=== PATIENT | female | born 1970 | race Caucasian/White ===

== ENCOUNTER 2019-10-26 18:25 | Emergency (ER) | payer MEDICARE, OTHER, SELFPAY ==
--- NOTE | 2019-10-26 18:28 | ED.GENADULT ---
HPI - General Adult General Chief complaint: Upper Respiratory Infection Stated complaint: Asthma issues Time Seen by Provider: 10/26/19 19:05 Source: patient Mode of arrival: ambulatory Limitations: no limitations History of Present Illness HPI narrative: 49-year-old female patient presents to the [facility] with complaints of shortness of breath and coughing. Patient states that started yesterday. Patient states she does have a history of sports induced asthma and has been using her inhaler at home but states she thinks it is almost out. Patient states she is also had some congestion symptoms but denies any sore throat, ear pain or fevers. Patient denies getting a flu shot yet this year. Related Data Home Medications Medication Instructions Recorded Confirmed albuterol sulfate 2 puff INHALATION QID PRN 10/26/19 10/26/19 Allergies Allergy/AdvReac Type Severity Reaction Status Date / Time codeine Allergy Intermediate hives Verified 10/26/19 18:55 Penicillins Allergy Intermediate hives Verified 10/26/19 18:55 lorazepam Allergy Mild chest Verified 10/26/19 18:55 burning latex AdvReac Mild Rash Verified 10/26/19 18:55 Review of Systems Review of Systems: Narrative: CONSTITUTIONAL: Denies fever, chills, or sweats. EYES: Denies visual changes, redness, or discharge. ENT: Positive rhinorrhea, congestion, denies sore throat, or otalgia. CARDIOVASCULAR: Denies chest pain, palpitations, or edema. RESPIRATORY: Positive cough with dyspnea. GASTROINTESTINAL: Denies abdominal pain, nausea, vomiting, or diarrhea. GENITOURINARY: Denies dysuria or hematuria. SKIN: Denies rash or itching. MUSCULOSKELETAL: Denies back pain, joint pain, or myalgia. NEUROLOGIC: Denies headache, numbness, or weakness. PSYCHIATRIC: Denies anxiety or depression. [facility] Past Medical History Medical History ADHD Anxiety Asthma Cone-kylah degeneration Depression Hypertension Surgical History Surgical History H/O: hysterectomy Comments At the time of my signature I agree with nursing past medical history, surgical, social, and family history. There is no relevant family history pertinent to the presenting complaint. Exam Narrative: Exam Narrative: GENERAL: Well-appearing, well-nourished, and in no acute distress. HEAD: Normocephalic, atraumatic. No tenderness noted to frontal maxillary sinuses on palpation. EYES: PERRLA and EOMI. ENT: Nares with erythema and edema noted bilaterally, no rhinorrhea or epistaxis. Mucous membranes moist. Posterior pharynx with no erythema, tonsillar margin, exudates or lesions present. Bilateral TMs are clear with no erythema or foreign bodies in the canal. NECK: Supple. No lymphadenopathy CHEST: No wheezing noted on auscultation. Patient does sound slightly diminished to the lower lobes.. No respiratory distress. Patient does have some labored breathing noted and is talking in broken sentences but no tripoding noted. HEART: Regular rate and rhythm. No murmur heard. Normal peripheral pulses. ABDOMEN: Soft, nontender, nondistended, normal active bowel sounds. EXTREMITIES: Normal range of motion. No edema. SKIN: Warm, dry, no rash. NEURO: No focal deficits. Alert and oriented x3. Course Reevaluation(s) Reevaluation #1: Reevaluated patient and her lungs are nice and clear after receiving her DuoNeb. Patient states that she is feeling much better and is less short of breath. Discussed with patient we will discharge her home with an albuterol inhaler, oral steroid, daily antihistamine, nasal steroid to help with her symptoms and if she has worsening symptoms such as chest pain or shortness of breath she feels like this medication is not helping her she needs to go the ER for further evaluation and treatment. Patient verbalized understanding denies any other questions or concerns at this time. Date: 10/26/19 [place]
[2019-10-26 18:35] VITALS: BP 178/98; PULSE 100; RESP 28; TEMP 36.3; O2SAT 99
[2019-10-26] MEDS: ALBUTEROL SULFATE NEB 2.5 MG/3 ML INH INHALATION (19:16)
[2019-10-26] MEDS: IPRATROPIUM BR 0.02% INH SOLN 0.5 MG/2.5 ML VIAL INHALATION (19:16)
== END 2019-10-26 19:35 | disposition home or self-care (01) ==
PROVIDERS: Emergency Provider Nurse Practitioner Family
DX: J06.9 Acute upper respiratory infection, unspecified (principal); J45.31 Mild persistent asthma with (acute) exacerbation; F41.9 Anxiety disorder, unspecified; I10 Essential (primary) hypertension; H35.53 Other dystrophies primarily involving the sensory retina; H54.8 Legal blindness, as defined in USA
CPT/HCPCS: 94640; 99213; G0463

== ENCOUNTER 2021-01-22 15:47 | Emergency (ER) | payer MEDICARE, OTHER, SELFPAY ==
--- NOTE | ~2021-01-22 | XR_ITS ---
EXAMINATION: XR knee RT min 4V EXAM DATE: 01/22/2021 16:26 INDICATION: Initial encounter following injury, with pain of the right knee. TECHNIQUE: Right knee frontal, crosstable lateral, orthogonal oblique projections for interpretation . There is no prior study for comparison. FINDINGS: There is mild right knee tricompartmental primary osteoarthritis. No joint effusion. There are no acute fractures or dislocations identified. There is no subcutaneous gas. The soft tissue i s unremarkable. There are no radiopaque foreign bodies. IMPRESSION: No acute osseous findings. Reviewed, dictated and finalized at location A. IMPRESSION: No acute osseous findings.
[2021-01-22 15:56] VITALS: BP 146/89; PULSE 82; RESP 20; TEMP 36.4; O2SAT 98
--- NOTE | 2021-01-22 16:06 | ED.LOWEXIN ---
HPI - Extremity Injury (Lower) General Chief Complaint: Extremity Injury, Lower Stated Complaint: right knee injury Time Seen by Provider: 01/22/21 16:06 Source: patient, family and RN notes reviewed History of Present Illness HPI Narrative: Patient is a 50-year-old female who presents to the urgent care with complaints of right knee pain. Patient states that she was going to sit down on a lounge chair, missed the chair and landed directly on the right knee. Patient is legally blind and just did not see the chair clearly. Patient denies any use of ice or [id number] medication prior to arrival. Patient states the injury just occurred. Denies of hitting her head or any loss of consciousness. Patient's is accompanying in the facility. No other acute complaints. No acute distress noted. Patient aware of the plan of care. Some parts of this dictation were generated by voice recognition software and may contain typographical and/or grammatical inaccuracies. Related Data Home Medications Medication Instructions Recorded Confirmed albuterol sulfate 2 puff INHALATION QID PRN 01/22/21 01/22/21 dextroamphetamine-amphetamine 30 mg PO DAILY 01/22/21 01/22/21 dextroamphetamine-amphetamine PO 01/22/21 lisinopril 01/22/21 metoprolol succinate 25 mg PO DAILY 01/22/21 01/22/21 sertraline 50 mg PO DAILY 01/22/21 01/22/21 sertraline 100 mg PO DAILY 01/22/21 01/22/21 Allergies Allergy/AdvReac Type Severity Reaction Status Date / Time codeine Allergy Intermediate hives Verified 01/22/21 15:58 Penicillins Allergy Intermediate hives Verified 01/22/21 15:58 lorazepam Allergy Mild chest Verified 01/22/21 15:58 burning latex AdvReac Mild Rash Verified 01/22/21 15:58 Review of Systems Review of Systems: Narrative: CONSTITUTIONAL: Denies fever, chills, or sweats. EYES: Denies visual changes, redness, or discharge. ENT: Denies rhinorrhea, congestion, sore throat, or otalgia. CARDIOVASCULAR: Denies chest pain, palpitations, or edema. RESPIRATORY: Denies cough or dyspnea. GASTROINTESTINAL: Denies abdominal pain, nausea, vomiting, or diarrhea. GENITOURINARY: Denies dysuria or hematuria. SKIN: Denies rash or itching. MUSCULOSKELETAL: Reports of right knee pain due to injury NEUROLOGIC: Denies headache, numbness, or weakness. All other systems reviewed are negative, except as documented in HPI. [facility] Past Medical History Medical History (Updated 01/22/21 @ 16:38 by GREGORY Mendez) ADHD Anxiety Asthma Cone-kylah degeneration Depression Hypertension Surgical History Surgical History H/O: hysterectomy Comments At the time of my signature, I reviewed and agree with the nursing past medical, surgical, social, and family history. There is no relevant family history pertinent to the patient complaint. Exam Narrative: Exam Narrative: GENERAL: This is a well-nourished, well-developed patient, in no apparent distress. HEAD: normocephalic, atraumatic. EYES: PERRL. Sclera clear/white. Vision is grossly intact. EARS: External ears normal NOSE: External nose normal with no obvious nasal discharge, nares without redness, no rhinorrhea. THROAT: Mucous membranes moist NECK: Neck supple SKIN: warm, intact with no suspicious lesions or rash, good texture and turgor. NEURO: awake, alert, and oriented to person, place and time. There were no obvious focal neurologic abnormalities. EXTREMITIES: Very mild erythema noted over the anterior aspect of the right knee without any obvious ecchymosis or edema. Moderate tenderness over the anterior knee. Unable to complete full range of motion due to pain. Exacerbated pain with flexion. Positive strong right pedal pulse with capillary refill less than 2 seconds. Course Vital Signs Vital signs: Vital Signs Temperature 97.6 F 01/22/21 15:56 Pulse Rate 82 01/22/21 15:56 Respiratory Rate 20 01/22/21 15:56 Blood Pressure
== END 2021-01-22 16:40 | disposition home or self-care (01) ==
PROVIDERS: Emergency Provider Nurse Practitioner Family
DX: S80.01XA Contusion of right knee, initial encounter (principal); W19.XXXA Unspecified fall, initial encounter; F90.9 Attention-deficit hyperactivity disorder, unspecified type; F41.9 Anxiety disorder, unspecified; F32.9 Major depressive disorder, single episode, unspecified; J45.909 Unspecified asthma, uncomplicated; I10 Essential (primary) hypertension
CPT/HCPCS: 73564; 99213; G0463

== ENCOUNTER 2021-02-23 15:13 | Emergency (ER) | payer MEDICARE, OTHER, SELFPAY ==
[2021-02-23 15:25] VITALS: BP 143/85; PULSE 85; RESP 16; TEMP 36.6; O2SAT 98
--- NOTE | 2021-02-23 16:08 | ED.SKABFB ---
HPI - Skin/Abscess/Foreign Bdy General Chief complaint: Skin/Abscess/Foreign Body Stated complaint: Sores in Mouth Time Seen by Provider: 02/23/21 15:50 Source: patient and RN notes reviewed Mode of arrival: ambulatory Limitations: no limitations History of Present Illness HPI narrative: Patient presents today complaining of a sore to her lower lip. States it has been present for 2 months and started on is a small white bump. It has worsened to the point that it is but has not gotten worse in some time. She describes it as sore . She believes that it may be due to her siphoning out pool water from her pool with her mouth on the hose just prior to onset. She did take a prescription for Valtrex and also tried some cold sore medication without relief of symptoms. Patient has never smoked, vape at, or chewed tobacco. She does have history of skin cancer to her right forearm that was removed. She does not currently have a pond tender. Patient is visually impaired and relies on her to give her updates about how the lesion looks. He does seem very attentive. MD complaint: lesion Related Data Home Medications Medication Instructions Recorded Confirmed dextroamphetamine-amphetamine 10 mg PO DAILY 01/22/21 02/23/21 dextroamphetamine-amphetamine 30 mg PO DAILY 01/22/21 02/23/21 lisinopril 10 mg PO DAILY 01/22/21 02/23/21 metoprolol succinate 25 mg PO DAILY 01/22/21 02/23/21 sertraline 50 mg PO DAILY 01/22/21 02/23/21 sertraline 100 mg PO DAILY 01/22/21 02/23/21 valacyclovir 1,000 mg PO DAILY 02/23/21 02/23/21 Allergies Allergy/AdvReac Type Severity Reaction Status Date / Time codeine Allergy Intermediate hives Verified 01/22/21 15:58 Penicillins Allergy Intermediate hives Verified 01/22/21 15:58 lorazepam Allergy Mild chest Verified 01/22/21 15:58 burning latex AdvReac Mild Rash Verified 01/22/21 15:58 Review of Systems Review of Systems: Narrative: CONSTITUTIONAL: Denies body aches, fever, chills, or sweats. EYES: Denies visual changes, redness, or discharge. ENT: Denies rhinorrhea, congestion, sore throat, or otalgia. CARDIOVASCULAR: Denies chest pain, palpitations, or edema. RESPIRATORY: Denies cough or dyspnea. GASTROINTESTINAL: Denies abdominal pain, nausea, vomiting, or diarrhea. GENITOURINARY: Denies dysuria or hematuria. SKIN: Denies rash, itching, or wounds.+ Lesion to lower lip MUSCULOSKELETAL: Denies back pain, joint pain, or myalgia. NEUROLOGIC: Denies headache, numbness, tingling, or weakness. PSYCH: Denies depression or anxiety. [facility] Past Medical History Medical History (Updated 02/23/21 @ 16:11 by Benita Washington, GREGORY, ) ADHD Anxiety Asthma Cone-kylah degeneration Depression Hypertension Surgical History Surgical History H/O: hysterectomy Social History Social History Gender identity (if verbalized by the patient): Female Comments At time of signature, I have reviewed and agree with nursing past medical, surgical, social and family history unless otherwise noted. Please see nursing chart for further information. There is no relevant family history pertinent to the presenting complaint Exam Narrative: Exam Narrative: GENERAL: Well-appearing, well-nourished, and in no acute distress. HEAD: Normocephalic, atraumatic. EYES: EOMI. No redness or drainage. Conjunctivae normal. ENT: Mucous membranes pink and moist. Lower lip: ~6mm white area to midline lower lip with well delineated outer edge and firm tissue. Sore to touch. Mild erythema to the medial edge where patient tore off a loose piece of overlying skin. No edema. Remainder of the oral mucosa appears normal. NECK: Normal AROM. Supple. No lymphadenopathy. CHEST: No respiratory distress. EXTREMITIES: Normal range of motion. No edema. SKIN: Warm, dry, no rash. Capillary refill normal. Normal skin turgor. NEURO
== END 2021-02-23 16:18 | disposition home or self-care (01) ==
PROVIDERS: Emergency Provider Nurse Practitioner; PCP Internal Medicine
DX: K13.0 Diseases of lips (principal); I10 Essential (primary) hypertension; J45.909 Unspecified asthma, uncomplicated; F90.9 Attention-deficit hyperactivity disorder, unspecified type; F41.9 Anxiety disorder, unspecified; F32.9 Major depressive disorder, single episode, unspecified
CPT/HCPCS: 99211; G0463

== ENCOUNTER 2021-05-08 09:54 | Emergency (ER) | payer MEDICARE, OTHER, SELFPAY ==
[2021-05-08 10:03] VITALS: BP 147/90; PULSE 88; RESP 20; TEMP 37.6; O2SAT 99
--- NOTE | 2021-05-08 10:41 | ED.SOB ---
HPI - SOB/Dyspnea General Chief Complaint: Shortness of Breath/Dyspnea Stated Complaint: Shortness of breath Time Seen by Provider: 05/08/21 10:44 Source: patient, RN notes reviewed and old records reviewed Mode of arrival: ambulatory Limitations: no limitations History of Present Illness HPI Narrative: 51-year-old female who presents to [facility] accompanied by daughter. with complaints of cough with some shortness of breath noted with exertion for the past 2 days Patient states that she initially had some sinus drainage and congestion which seems to be resolving but has history of asthma and she has been coughing with shortness of breath with exertion and wheezing noted.Patient denies any chest pain or edema. She reports that her daughter and had also had some upper respiratory symptoms prior to her becoming ill.Patient reports that she has been taking Tylenol, Mucinex and also some Sudafed for her symptoms. Patient denies any known fevers, chills or sweats, has not had flu or Covid immunizations. Related Data Home Medications Medication Instructions Recorded Confirmed dextroamphetamine-amphetamine 10 mg PO DAILY 01/22/21 05/08/21 dextroamphetamine-amphetamine 30 mg PO DAILY 01/22/21 05/08/21 lisinopril 10 mg PO DAILY 01/22/21 05/08/21 metoprolol succinate 25 mg PO DAILY 01/22/21 05/08/21 sertraline 50 mg PO DAILY 01/22/21 05/08/21 sertraline 100 mg PO DAILY 01/22/21 05/08/21 valacyclovir 1,000 mg PO DAILY 02/23/21 05/08/21 Allergies Allergy/AdvReac Type Severity Reaction Status Date / Time codeine Allergy Intermediate hives Verified 05/08/21 10:02 Penicillins Allergy Intermediate hives Verified 05/08/21 10:02 lorazepam Allergy Mild chest Verified 05/08/21 10:02 burning latex AdvReac Mild Rash Verified 05/08/21 10:02 Review of Systems Review of Systems: CONSTITUTIONAL: Denies fever, chills, or sweats. EYES: Denies visual changes, redness, or discharge.patient is legally blind ENT: positive for rhinorrhea, congestion,no sore throat, or otalgia. CARDIOVASCULAR: Denies chest pain, palpitations, or edema. RESPIRATORY:Positive for cough and dyspnea with exertion and wheezing GASTROINTESTINAL: Denies abdominal pain, nausea, vomiting, or diarrhea. GENITOURINARY: Denies dysuria or hematuria. SKIN: Denies rash or itching. MUSCULOSKELETAL: Denies back pain, joint pain, or myalgia. NEUROLOGIC: Denies headache, numbness, or weakness. PSYCHIATRIC: Positive for anxiety or depression. All systems reviewed & are unremarkable except as noted in HPI and below PMFSH Past Medical History Medical History ADHD Anxiety Asthma Cone-kylah degeneration Depression Hypertension Surgical History Surgical History H/O: hysterectomy History of tonsillectomy and adenoidectomy age 8 Previous section x2 Family History Family History Other No significant family history Social History Social History (Updated 05/10/21 @ 07:52 by Antonella Granados NP) Smoking status: Never smoker Alcohol intake: never Substance use: never Living arrangements: with family Gender identity (if verbalized by the patient): Female Comments At time of signature, agree with nursing past medical, surgical, social and family history. There is no relevant family history pertinent to the presenting complaint Exam Narrative: GENERAL: Well-appearing, well-nourished, and in no acute distress. HEAD: Normocephalic, atraumatic. EYES: PERRLA and EOMI.has bilateral cone dystrophy is legally blind ENT: Nares mild redness with clear rhinorrhea no epistaxis. Mucous membranes moist.TM's normal with good light reflex, throat NECK: Supple.no lymphadenopathy CHEST: Scattered wheezing on auscultation. No acute respiratory distress, no tachypnea, SAO2 99% on room air HEART: Regular ra
[2021-05-08] MEDS: ALBUTEROL SULFATE NEB 2.5 MG/3 ML INH INHALATION (11:08)
[2021-05-08 11:40] VITALS: PULSE 96; RESP 20; O2SAT 98
== END 2021-05-08 11:40 | disposition home or self-care (01) ==
PROVIDERS: Emergency Provider Registered Nurse
DX: J45.21 Mild intermittent asthma with (acute) exacerbation (principal); F90.9 Attention-deficit hyperactivity disorder, unspecified type; I10 Essential (primary) hypertension; F32.9 Major depressive disorder, single episode, unspecified
CPT/HCPCS: 94640; 99213; G0463

== ENCOUNTER 2021-08-29 13:19 | Emergency (ER) | payer MEDICARE, OTHER, SELFPAY ==
[2021-08-29 13:27] VITALS: BP 152/83; PULSE 80; RESP 20; TEMP 37.1; O2SAT 95
--- NOTE | 2021-08-29 13:36 | ED.URI ---
HPI - URI/Sore Throat General Chief Complaint: Upper Respiratory Infection Stated Complaint: sore throat and ear pain Time Seen by Provider: 08/29/21 13:36 Source: patient, family and RN notes reviewed Mode of arrival: ambulatory Limitations: no limitations History of Present Illness HPI Narrative: Kaia is a 51-year-old female patient [facility] her . Patient has a 1 day history of nasal congestion and sore throat. Patient states she has a new grandbaby that she seen this week and so just wanted to make sure she did not have anything contagious. Patient has not been taking her daily allergy medicine. MD elicited complaint: sore throat Related Data Home Medications Medication Instructions Recorded Confirmed dextroamphetamine-amphetamine 10 mg PO DAILY 01/22/21 05/08/21 dextroamphetamine-amphetamine 30 mg PO DAILY 01/22/21 05/08/21 lisinopril 10 mg PO DAILY 01/22/21 05/08/21 metoprolol succinate 25 mg PO DAILY 01/22/21 05/08/21 sertraline 50 mg PO DAILY 01/22/21 05/08/21 sertraline 100 mg PO DAILY 01/22/21 05/08/21 valacyclovir 1,000 mg PO DAILY 02/23/21 05/08/21 Allergies Allergy/AdvReac Type Severity Reaction Status Date / Time codeine Allergy Intermediate hives Verified 08/29/21 13:37 Penicillins Allergy Intermediate hives Verified 08/29/21 13:37 lorazepam Allergy Mild chest Verified 08/29/21 13:37 burning latex AdvReac Mild Rash Verified 08/29/21 13:37 Review of Systems Review of Systems: CONSTITUTIONAL: Denies body aches, fever, chills, or sweats. EYES: Denies visual changes, redness, or discharge. ENT: Denies rhinorrhea,+ congestion, +sore throat, or otalgia. CARDIOVASCULAR: Denies chest pain, palpitations, or edema. RESPIRATORY: Denies cough or dyspnea. GASTROINTESTINAL: Denies abdominal pain, nausea, vomiting, or diarrhea. GENITOURINARY: Denies dysuria or hematuria. SKIN: Denies rash, itching, or wounds. MUSCULOSKELETAL: Denies back pain, joint pain, or myalgia. NEUROLOGIC: Denies headache, numbness, tingling, or weakness. PSYCH: Denies depression or anxiety. All systems reviewed & are unremarkable except as noted in HPI and below PMFSH Past Medical History Medical History ADHD Anxiety Asthma Cone-kylah degeneration Depression Hypertension Surgical History Surgical History H/O: hysterectomy History of tonsillectomy and adenoidectomy age 8 Previous section x2 Family History Family History Other No significant family history Social History Social History Smoking status: Never smoker Alcohol intake: never Substance use: never Gender identity (if verbalized by the patient): Female Comments At time of signature, I have reviewed and agree with nursing past medical, surgical, social and family history unless otherwise noted. Please see nursing chart for further information. There is no relevant family history pertinent to the presenting complaint Exam Narrative: GENERAL: Well-appearing, well-nourished, and in no acute distress. HEAD: Normocephalic, atraumatic. EYES: EOMI. No redness or drainage. Conjunctivae normal. ENT: Mucous membranes pink and moist. Nares clear. No rhinorrhea. TMs dull with minimal amount of fluid in right ear, left TM normal, no erythema noted. Posterior pharynx erythemic with mild edema, without exudate. . Uvula midline. NECK: Normal AROM. Supple. No lymphadenopathy. CHEST: No respiratory distress. Clear to auscultation. MUSCULOSKELETAL: No bony tenderness. EXTREMITIES: Normal range of motion. No edema. SKIN: Warm, dry, no rash. Capillary refill normal. Normal skin turgor. NEURO: No focal deficits. Alert and oriented x3. Gait steady. PSYCH: Normal affect. No signs of depress
== END 2021-08-29 13:50 | disposition home or self-care (01) ==
PROVIDERS: Emergency Provider Nurse Practitioner Family
DX: J02.8 Acute pharyngitis due to other specified organisms (principal); I10 Essential (primary) hypertension
CPT/HCPCS: 87081; 87880; 99213; G0463

== ENCOUNTER 2021-09-17 14:44 | Emergency (ER) | payer MEDICARE, OTHER, SELFPAY ==
[2021-09-17 15:00] VITALS: BP 153/89; PULSE 79; RESP 18; TEMP 36.8; O2SAT 99
--- NOTE | 2021-09-17 15:13 | ED.URI ---
HPI - URI/Sore Throat General Chief Complaint: Upper Respiratory Infection Stated Complaint: sore throat Time Seen by Provider: 09/17/21 15:13 Source: patient, RN notes reviewed and old records reviewed Mode of arrival: ambulatory Limitations: no limitations History of Present Illness HPI Narrative: 51-year-old female presents to the [facility] with complaints of a sore throat. Patient states for the last week she has had sinus congestion, postnasal drip. Had seen her primary on the was prescribed Tessalon Perles for her cough, did not take any. States that she has had intermittent sore throat that is been waxing and waning for the last month. Reports a cough at night. Denies fevers. No chest pain or shortness of breath. No abdominal pain Related Data Home Medications Medication Instructions Recorded Confirmed dextroamphetamine-amphetamine 10 mg PO DAILY 01/22/21 09/17/21 dextroamphetamine-amphetamine 30 mg PO DAILY 01/22/21 09/17/21 lisinopril 10 mg PO DAILY 01/22/21 09/17/21 metoprolol succinate 25 mg PO DAILY 01/22/21 09/17/21 sertraline 100 mg PO DAILY 01/22/21 09/17/21 benzocaine-menthol [Sore Throat 1 ana maria PO DAILY PRN 09/17/21 09/17/21 (benzocaine-menth)] Allergies Allergy/AdvReac Type Severity Reaction Status Date / Time codeine Allergy Intermediate hives Verified 09/17/21 15:17 Penicillins Allergy Intermediate hives Verified 09/17/21 15:17 lorazepam Allergy Mild chest Verified 09/17/21 15:17 burning latex AdvReac Mild Rash Verified 09/17/21 15:17 Review of Systems Constitutional: Constitutional: Reports no additional constitutional complaints, Denies chills and Denies fever(s) Eyes: Eyes: Reports no additional eye complaints ENT: Reports nasal congestion and Reports sore throat Cardiovascular: Cardiovascular: Reports no additional cardiovascular complaints and Denies chest pain Respiratory: Respiratory: Reports as per HPI, Reports cough (At night), Denies dyspnea and Denies wheezing Gastrointestinal: Gastrointestinal: Reports no additional gastrointestinal complaints Musculoskeletal: Musculoskeletal: Reports no additional musculoskeletal complaints Integumentary/Breasts: Skin/Breast: Reports system reviewed and no additional complaints, except as docu Neurologic: Reports system reviewed and no additional complaints, except as documented Psychiatric: Psychiatric: Reports no additional psychiatric complaints Allergic/Immunologic: Allergic/Immunologic: Reports no additional allergic/immunologic complaints PMFSH Past Medical History Medical History ADHD Anxiety Asthma Cone-kylah degeneration Depression Hypertension Surgical History Surgical History H/O: hysterectomy History of tonsillectomy and adenoidectomy age 8 Previous section x2 Family History Family History Other No significant family history Social History Social History Smoking status: Never smoker Alcohol intake: never Substance use: never Gender identity (if verbalized by the patient): Female Comments At the time of my signature, I reviewed and agree with the nursing past medical, surgical, social, and family history. There is no relevant family history pertinent to the patient complaint. Exam Const: General: healthy appearing, no acute distress and alert Nutritional Appearance: well nourished Orientation/consciousness: patient oriented x3 Limitations: no limitations HENMT: Head: normal to inspection Ears: hearing grossly normal bilaterally, external ears normal, TM's normal bilaterally, EAC's normal and no periauricular adenopathy Face and sinus: normal facial exam Mouth: Yes Normal oral and palatal mucosa present Throat: uvula midline and postnasal drainage Eyes: Conjunctivae: conjunctivae nor
== END 2021-09-17 15:30 | disposition home or self-care (01) ==
PROVIDERS: Emergency Provider Nurse Practitioner
DX: R09.82 Postnasal drip (principal); J45.909 Unspecified asthma, uncomplicated; I10 Essential (primary) hypertension; F90.9 Attention-deficit hyperactivity disorder, unspecified type; F41.9 Anxiety disorder, unspecified; F32.A Depression, unspecified
CPT/HCPCS: 87081; 87880; 99213; G0463

== ENCOUNTER 2021-11-16 14:11 | Emergency (ER) | payer MEDICARE, OTHER, SELFPAY ==
[2021-11-16 14:20] VITALS: BP 141/80; PULSE 86; RESP 16; TEMP 36.9; O2SAT 100
--- NOTE | 2021-11-16 14:27 | ED.EAR ---
HPI - Ear Problem General Chief complaint: Ear Stated complaint: lt ear Time Seen by Provider: 11/16/21 14:26 Source: patient, RN notes reviewed and old records reviewed Mode of arrival: ambulatory Limitations: no limitations History of Present Illness HPI Narrative: 51 year old female who presents to [facility] care accompanied by her with complaints of left ear pressure for the past 3 days with history of previous ear infections in the past reported. Patient denies any fevers, chills, or sweats, denies any sinus drainage or congestion or any drainage from her left ear. Patient states that she has tried some ear wax remover with no relief, no drainage from ear. MD Complaint: ear pain Location: left ear Related Data Home Medications Medication Instructions Recorded Confirmed dextroamphetamine-amphetamine 10 mg PO DAILY 01/22/21 09/17/21 dextroamphetamine-amphetamine 30 mg PO DAILY 01/22/21 09/17/21 lisinopril 10 mg PO DAILY 01/22/21 09/17/21 metoprolol succinate 25 mg PO DAILY 01/22/21 09/17/21 sertraline 100 mg PO DAILY 01/22/21 09/17/21 benzocaine-menthol [Sore Throat 1 ana maria PO DAILY PRN 09/17/21 09/17/21 (benzocaine-menth)] Allergies Allergy/AdvReac Type Severity Reaction Status Date / Time codeine Allergy Intermediate hives Verified 09/17/21 15:17 Penicillins Allergy Intermediate hives Verified 09/17/21 15:17 lorazepam Allergy Mild chest Verified 09/17/21 15:17 burning latex AdvReac Mild Rash Verified 09/17/21 15:17 Review of Systems Review of Systems: CONSTITUTIONAL: Denies fever, chills, or sweats. EYES: Denies visual changes, redness, or discharge.patient is legally blind ENT: Denies rhinorrhea, congestion, sore throat, positive for left ear otalgia. CARDIOVASCULAR: Denies chest pain, palpitations, or edema. RESPIRATORY: Denies cough or dyspnea. GASTROINTESTINAL: Denies abdominal pain, nausea, vomiting, or diarrhea. GENITOURINARY: Denies dysuria or hematuria. SKIN: Denies rash or itching. MUSCULOSKELETAL: Denies back pain, joint pain, or myalgia. NEUROLOGIC: Denies headache, numbness, or weakness. PSYCHIATRIC: Positive history of anxiety or depression. All systems reviewed & are unremarkable except as noted in HPI and below PMFSH Past Medical History Medical History (Updated 11/17/21 @ 16:28 by Antonella Granados NP) ADHD Anxiety Asthma Cone-kylah degeneration Depression Ear infection Hypertension Surgical History Surgical History H/O: hysterectomy History of tonsillectomy and adenoidectomy age 8 Previous section x2 Family History Family History Other No significant family history Social History Social History Smoking status: Never smoker Alcohol intake: never Substance use: never Gender identity (if verbalized by the patient): Female Comments At time of signature, agree with nursing past medical, surgical, social and family history. There is no relevant family history pertinent to the presenting complaint Exam Narrative: GENERAL: Well-appearing, well-nourished, and in no acute distress. HEAD: Normocephalic, atraumatic. 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 Mucous membranes moist.TM right normal with good light reflex, left TM red with no drainage or any irritation of canal, throat pink with no lesions or exudates, no tonsils present. NECK: Supple.no lymphadenopathy CHEST: Clear to auscultation. No respiratory distress.SAO2 100% on room air HEART: Regular rate and rhythm. No murmur heard. Normal peripheral pulses. ABDOMEN: Soft, nontender, nondistended, normal active bowel sounds. EXTREMITIES: Normal range of motion. No edema. SKIN: Warm, dry, no rash. NEURO: No focal deficits. Alert and oriented x3. Cour
== END 2021-11-16 14:59 | disposition home or self-care (01) ==
PROVIDERS: Emergency Provider Registered Nurse
DX: H66.92 Otitis media, unspecified, left ear (principal); J45.909 Unspecified asthma, uncomplicated; I10 Essential (primary) hypertension; F90.9 Attention-deficit hyperactivity disorder, unspecified type; F41.9 Anxiety disorder, unspecified; F32.A Depression, unspecified
CPT/HCPCS: 99213; G0463

== ENCOUNTER 2022-04-19 08:56 | Emergency (ER) | payer MEDICARE, OTHER, SELFPAY ==
[2022-04-19 09:48] VITALS: BP 134/84; PULSE 100; RESP 24; TEMP 37; O2SAT 99
--- NOTE | 2022-04-19 10:35 | ED.GENADULT ---
HPI - General Adult General Chief complaint: Upper Respiratory Infection Stated complaint: COVID Positve - Ear pain Source: patient Mode of arrival: ambulatory Limitations: no limitations History of Present Illness HPI narrative: Patient presents for evaluation after recent positive COVID test at home 2 days ago. She developed symptoms the same day as her test was performed. Symptoms including fatigue, body aches, fever, postnasal drainage, productive cough of clear sputum, mild SOB and sore throat that she attributes to postnasal drainage. No chills, nausea, vomiting or diarrhea. She has some pressure in her ears, which prompted her to come in for further evaluation. She spoke with her primary care provider yesterday about potentially starting paxlovid however she states they told her that the risks associated with therapy outweighed benefit. She has tried tylenol, zyrtec and vitamin c for her symptoms. Related Data Home Medications Medication Instructions Recorded Confirmed lisinopril 5 mg tablet 5 mg PO DAILY 01/22/21 04/19/22 metoprolol succinate 25 mg 25 mg PO DAILY 01/22/21 04/19/22 tablet,extended release 24 hr sertraline 100 mg tablet 100 mg PO DAILY 01/22/21 04/19/22 atomoxetine 40 mg capsule 40 mg PO BID 04/19/22 04/19/22 dextroamphetamine-amphetamine ER 20 mg PO DAILY 04/19/22 04/19/22 20 mg 24hr capsule,extend release Allergies Allergy/AdvReac Type Severity Reaction Status Date / Time codeine Allergy Intermediate hives Verified 04/19/22 10:06 Penicillins Allergy Intermediate hives Verified 04/19/22 10:06 lorazepam Allergy Mild chest Verified 04/19/22 10:06 burning latex AdvReac Mild Rash Verified 04/19/22 10:06 Review of Systems Review of Systems: CONSTITUTIONAL: Reports fever and fatigue. Denies chills, or sweats. EYES: Denies visual changes, redness, or discharge. ENT: Reports sinus congestion, postnasal drainage, sore throat, bilateral ear pain CARDIOVASCULAR: Denies chest pain, palpitations, or edema. RESPIRATORY: Reports nonproductive cough. Denies SOB. GASTROINTESTINAL: Denies abdominal pain, nausea, vomiting, or diarrhea. GENITOURINARY: Denies dysuria or hematuria. SKIN: Denies rash or itching. MUSCULOSKELETAL: Reports generalized body aches NEUROLOGIC: Denies headache, numbness, dizziness, or weakness. PSYCHIATRIC: Denies anxiety or depression. [facility] Past Medical History Medical History ADHD Anxiety Asthma Cone-kylah degeneration Depression Ear infection Hypertension Surgical History Surgical History H/O: hysterectomy History of tonsillectomy and adenoidectomy age 8 Previous section x2 Family History Family History Other No significant family history Social History Social History Smoking status: Never smoker Alcohol intake: never Substance use: never Gender identity (if verbalized by the patient): Female Exam Narrative: GENERAL: Appears acutely ill but non-toxic. She is well-nourished, and in no acute distress. HEAD: Normocephalic, atraumatic. EYES: PERRLA and EOMI. ENT: Nares clear, no rhinorrhea or epistaxis. Mucous membranes moist. Oropharynx without tonsillar hypertrophy exudate or other lesions. Bilateral TMs pearly brody nonbulging NECK: Supple. No adenopathy or masses. No carotid bruits or JVD CHEST: Clear to auscultation. Cough noted one exam. No respiratory distress. No wheezes rales or rhonchi HEART: Regular rate and rhythm. No murmur heard. Normal peripheral pulses. ABDOMEN: Soft, nontender, nondistended, normal active bowel sounds. EXTREMITIES: Normal range of motion. No edema. SKIN: Warm, dry, no rash. NEURO: No focal deficits. Alert and oriented x3. PSYCH: Normal mood and affect. Cour
== END 2022-04-19 10:30 | disposition home or self-care (01) ==
PROVIDERS: Emergency Provider Nurse Practitioner
DX: U07.1 COVID-19 (principal); J45.909 Unspecified asthma, uncomplicated; I10 Essential (primary) hypertension; F90.9 Attention-deficit hyperactivity disorder, unspecified type; F41.9 Anxiety disorder, unspecified; F32.A Depression, unspecified
CPT/HCPCS: 99211; G0463

== ENCOUNTER 2022-10-08 08:09 | Emergency (ER) | payer MEDICARE, OTHER, SELFPAY ==
--- NOTE | 2022-10-08 08:10 | ED.URI ---
HPI - URI/Sore Throat General Chief Complaint: Upper Respiratory Infection Stated Complaint: Sore Throat Time Seen by Provider: 10/08/22 08:10 Source: patient Mode of arrival: ambulatory Limitations: no limitations History of Present Illness HPI Narrative: Ms. Tijerina is a 52-year-old female patient presenting to the clinic today with complaints of a sore throat , nasal congestion, and productive cough with clear phlegm x2 weeks. She reports her sore throat really started this morning. States that feels the her throat is more swollen in her lymph nodes are swollen. She denies any fever or chills. MD elicited complaint: sore throat and nasal congestion Related Data Home Medications Medication Instructions Recorded Confirmed lisinopril 5 mg tablet 5 mg PO DAILY 01/22/21 10/08/22 metoprolol succinate 25 mg 25 mg PO DAILY 01/22/21 10/08/22 tablet,extended release 24 hr sertraline 100 mg tablet 100 mg PO DAILY 01/22/21 10/08/22 atomoxetine 40 mg capsule 40 mg PO BID 04/19/22 10/08/22 Allergies Allergy/AdvReac Type Severity Reaction Status Date / Time codeine Allergy Intermediate hives Verified 10/08/22 08:19 Penicillins Allergy Intermediate hives Verified 10/08/22 08:19 lorazepam Allergy Mild chest Verified 10/08/22 08:19 burning latex AdvReac Mild Rash Verified 10/08/22 08:19 Review of Systems Review of Systems: Pertinent positives per HPI. Patient denies any fever, chills, rash, headache, visual changes, dizziness, shortness of breath, chest pain, palpitations, nausea, vomiting, diarrhea, constipation, abdominal pain, or any urinary issues. PMFSH Past Medical History Medical History ADHD Anxiety Asthma Cone-kylah degeneration Depression Ear infection Hypertension Surgical History Surgical History H/O: hysterectomy History of tonsillectomy and adenoidectomy age 8 Previous section x2 Family History Family History Other No significant family history Social History Social History (Reviewed 10/08/22 @ 08:11 by MIL Yanez Smoking status: Never smoker Alcohol intake: never Substance use: never Gender identity (if verbalized by the patient): Female Comments At the time of my signature, I reviewed and agree with the nursing past medical, surgical, social, and family history. There is no relevant family history pertinent to the patient complaint. Exam Narrative: General: Well-developed, well nourished, in no apparent distress Head: Normocephalic, atraumatic Eyes: Pupils equally round and reactive to light bilaterally, EOM intact, sclera and conjunctive clear, no discharge, lids normal Ears: TMs intact and clear, ear canals clear, no drainage, grossly hearing normal. Nose: Nares patent, clear nasal discharge, moderate inflammation, no sinus tenderness. Mouth: Oral pharynx without lesions or masses, good dentition, MMM. postnasal drip Neck: Supple, trachea midline, no enlargement of anterior or posterior cervical nodes, no thyroid masses or goiter palpable. Cardio: Regular rate and rhythm, s1 and s2 normal, no murmur appreciated. Resp: Clear to auscultation bilaterally, no rhonchi, rales, wheezing or rubs Course Course Emergency Course: Portions of this record may have been created with voice recognition software. Level of Care: Express Care Visit Vital Signs Vital signs: Vital Signs Temperature 36.6 C 10/08/22 08:18 Pulse Rate 94 10/08/22 08:18 Respiratory Rate 16 10/08/22 08:18 Blood Pressure 151/88 H 10/08/22 08:18 Pulse Oximetry 100 10/08/22 08:18 Oxygen Delivery Room Air 10/08/22 08:18 Temperature 36.6 C 10/08/22 08:27 Pulse Rate 94 10/08/22 08:27 Respiratory Rate 16 10/08/22 08:27 Blood Pressure 151/88 H 10/08/22 08:27 P
[2022-10-08 08:18] VITALS: BP 151/88; PULSE 94; RESP 16; TEMP 36.6; O2SAT 100
[2022-10-08 08:27] VITALS: BP 151/88; PULSE 94; RESP 16; TEMP 36.6; O2SAT 100
== END 2022-10-08 08:50 | disposition home or self-care (01) ==
PROVIDERS: Emergency Provider Nurse Practitioner Family; PCP Family Medicine
DX: J06.9 Acute upper respiratory infection, unspecified (principal); J02.9 Acute pharyngitis, unspecified; J45.909 Unspecified asthma, uncomplicated; I10 Essential (primary) hypertension; F41.9 Anxiety disorder, unspecified; F32.A Depression, unspecified; F90.9 Attention-deficit hyperactivity disorder, unspecified type
CPT/HCPCS: 87081; 99213; G0463

== ENCOUNTER 2022-12-12 08:13 | Emergency (ER) | payer MEDICARE, OTHER, SELFPAY ==
--- NOTE | 2022-12-12 08:22 | ED.URI ---
HPI - URI/Sore Throat General Chief Complaint: Upper Respiratory Infection Stated Complaint: Poss UTI / Sore throat Source: patient and RN notes reviewed History of Present Illness HPI Narrative: 52-year-old female presents to urgent care with Mr. RUDOLPH. Patient states this morning she woke up with a sore throat, bilateral ear pain, and polyuria. Patient reports urinary ?pressure? with her polyuria. Denies any back pain or burning with urination. Patient states her granddaughter had strep throat last week and her grandson had strep throat this week. Patient states she babysat her grandson earlier this week. Patient has not taken any medication for her symptoms. Some parts of this dictation were generated by voice recognition software and may contain typographical and/or grammatical inaccuracies. Related Data Home Medications Medication Instructions Recorded Confirmed lisinopril 5 mg tablet 5 mg PO DAILY 01/22/21 12/12/22 metoprolol succinate 25 mg 25 mg PO DAILY 01/22/21 12/12/22 tablet,extended release 24 hr sertraline 100 mg tablet 100 mg PO DAILY 01/22/21 12/12/22 atomoxetine 40 mg capsule 40 mg PO BID 04/19/22 12/12/22 Allergies Allergy/AdvReac Type Severity Reaction Status Date / Time codeine Allergy Intermediate hives Verified 12/12/22 08:30 Penicillins Allergy Intermediate hives Verified 12/12/22 08:30 lorazepam Allergy Mild chest Verified 12/12/22 08:30 burning latex AdvReac Mild Rash Verified 12/12/22 08:30 Review of Systems Review of Systems: Pertinent positives per HPI.? Denies any fevers, vomiting, abdominal pain, chest pain, shortness of breath, or headache. PMFSH Past Medical History Medical History ADHD Anxiety Asthma Cone-kylah degeneration Depression Ear infection Hypertension Surgical History Surgical History H/O: hysterectomy History of tonsillectomy and adenoidectomy age 8 Previous section x2 Family History Family History Other No significant family history Social History Social History Smoking status: Never smoker Alcohol intake: never Substance use: never Living arrangements: with family Gender identity (if verbalized by the patient): Female Comments At the time of my signature, I reviewed and agree with the nursing past medical, surgical, social, and family history. There is no relevant family history pertinent to the patient complaint. Exam Narrative: GENERAL: This is a well-nourished, well-developed patient, in no apparent distress. HEAD: normocephalic, atraumatic. EYES: Sclera clear/white. Vision is grossly intact. EARS: External ears normal, auditory canals clear and without drainage, TMs erythemic without perforation. Hearing grossly intact. NOSE: External nose normal with no obvious nasal discharge, nares without redness, no rhinorrhea. THROAT: Mucous membranes moist, posterior pharynx erythemic. Bilateral tonsils erythemic and 2+. No exudate. NECK: Neck supple, non-tender without lymphadenopathy, masses or thyromegaly. CARDIOVASCULAR: Regular rate and rhythm without murmurs, gallops, or rubs. RESPIRATORY: Clear to auscultation. Breath sounds equal bilaterally. No wheezes, rales, or rhonchi. GASTROINTESTINAL: Abdomen soft, non-tender, nondistended. Bowel sounds are active. No hepato-splenomegaly, or palpable masses. No guarding. SKIN: warm, intact with no suspicious lesions or rash, good texture and turgor. NEURO: awake, alert, and oriented to person, place and time. There were no obvious focal neurologic abnormalities. Course Course Level of Care: Express Care Visit Vital Signs Vital signs: Vital Signs Pulse Rate 110 H 12/12/22 08:24 Respiratory Rate 18 12/12/22 08:24 Blood Pressure 1
[2022-12-12 08:24] VITALS: BP 156/95; PULSE 110; RESP 18; O2SAT 99
== END 2022-12-12 09:00 | disposition home or self-care (01) ==
PROVIDERS: Emergency Provider Nurse Practitioner Family
DX: N39.0 Urinary tract infection, site not specified (principal); B96.20 Unspecified Escherichia coli [E. coli] as the cause of diseases classified elsewhere; J02.0 Streptococcal pharyngitis; J45.909 Unspecified asthma, uncomplicated; F41.9 Anxiety disorder, unspecified; F32.A Depression, unspecified; I10 Essential (primary) hypertension
CPT/HCPCS: 81003; 87077; 87086; 87186; 87880; 99213; G0463

== ENCOUNTER 2023-03-01 09:49 | Emergency (ER) | payer MEDICARE, OTHER, SELFPAY ==
[2023-03-01 10:02] VITALS: BP 143/93; PULSE 81; RESP 16; TEMP 36.5; O2SAT 99
--- NOTE | 2023-03-01 10:15 | ED.FEMALEGU ---
HPI - Female Genitourinary General Chief complaint: Urogenital-Female Stated complaint: Poss UTI Time Seen by Provider: 03/01/23 10:16 Source: patient and RN notes reviewed Mode of arrival: ambulatory Limitations: no limitations History of Present Illness HPI Narrative: 52-year-old female presented for complaint of burning with urination, frequency, and urgency for the last 2 days. Increased water and cranberry juice, without significant change in symptoms. Denies abdominal pain, flank pain, hematuria, nausea, vomiting, fevers or chills. Related Data Home Medications Medication Instructions Recorded Confirmed lisinopril 5 mg tablet 5 mg PO DAILY 01/22/21 12/12/22 metoprolol succinate 25 mg 25 mg PO DAILY 01/22/21 12/12/22 tablet,extended release 24 hr sertraline 100 mg tablet 100 mg PO DAILY 01/22/21 12/12/22 atomoxetine 40 mg capsule 40 mg PO BID 04/19/22 12/12/22 Allergies Allergy/AdvReac Type Severity Reaction Status Date / Time codeine Allergy Intermediate hives Verified 12/12/22 08:30 Penicillins Allergy Intermediate hives Verified 12/12/22 08:30 lorazepam Allergy Mild chest Verified 12/12/22 08:30 burning latex AdvReac Mild Rash Verified 12/12/22 08:30 Review of Systems Review of Systems: CONSTITUTIONAL: Denies body aches, fever, chills, or sweats. CARDIOVASCULAR: Denies chest pain, palpitations, or edema. RESPIRATORY: Denies cough or dyspnea. GASTROINTESTINAL: Denies abdominal pain, nausea, vomiting, or diarrhea. GENITOURINARY: Reports dysuria, frequency, urgency, denies hematuria, flank pain SKIN: Denies rash, itching, or wounds. MUSCULOSKELETAL: Denies back pain or myalgia. [facility] Past Medical History Medical History ADHD Anxiety Asthma Cone-kylah degeneration Depression Ear infection Hypertension Surgical History Surgical History H/O: hysterectomy History of tonsillectomy and adenoidectomy age 8 Previous section x2 Family History Family History Other No significant family history Social History Social History Smoking status: Never smoker Alcohol intake: never Substance use: never Living arrangements: with family Gender identity (if verbalized by the patient): Female Comments At time of signature, I have reviewed and agree with nursing past medical, surgical, social and family history unless otherwise noted. Please see nursing chart for further information. There is no relevant family history pertinent to the presenting complaint Exam Narrative: GENERAL: Well-appearing and in no acute distress. ENT: Mucous membranes pink and moist. NECK: Normal AROM. Supple. CHEST: No respiratory distress. Clear to auscultation. HEART: Regular rate and rhythm. ABDOMEN: Soft, nontender, nondistended, normal active bowel sounds. No CVA tenderness SKIN: Warm, dry, no rash. NEURO: No focal deficits. Alert and oriented x3. Gait steady. PSYCH: Normal affect. No signs of depression or anxiety. Course Course Emergency Course: Patient is aware of diagnosis, understands and agrees to treatment plan. Anticipatory guidance given. Patient agrees to follow-up as directed and is aware of reasons to seek care at the emergency department. Portions of this record may have been created with voice recognition software Level of Care: Express Care Visit Vital Signs Vital signs: Vital Signs Temperature 97.7 F 03/01/23 10:02 Pulse Rate 81 03/01/23 10:02 Respiratory Rate 16 03/01/23 10:02 Blood Pressure 143/93 H 03/01/23 10:02 Pulse Oximetry 99 03/01/23 10:02 Temperature 97.7 F 03/01/23 10:02 Pulse Rate 81 03/01/23 10:02 Respiratory Rate 16 03/01/23 10:02 Blood Pressure 143/93 H 03/01/23 10:02 Pulse
== END 2023-03-01 10:27 | disposition home or self-care (01) ==
PROVIDERS: Emergency Provider Nurse Practitioner Family
DX: R30.0 Dysuria (principal); I10 Essential (primary) hypertension
CPT/HCPCS: 81003; 87086; 87088; 99213; G0463

== ENCOUNTER 2023-09-27 13:53 | Emergency (ER) | payer MEDICARE, OTHER, SELFPAY ==
[2023-09-27 14:00] VITALS: BP 180/90; PULSE 80; RESP 18; TEMP 36.4; O2SAT 97
--- NOTE | 2023-09-27 14:11 | ED.GENADULT ---
HPI - General Adult General Chief complaint: Upper Respiratory Infection Stated complaint: coough/sob/aches Source: patient, RN notes reviewed and old records reviewed Mode of arrival: ambulatory Limitations: no limitations History of Present Illness HPI narrative: 53-year-old female presents to Express Care with complaint of cough, congestion, myalgia, fatigue this started yesterday. Patient states her daughter and granddaughter have COVID. Patient denies weakness, dizziness, chest pain, shortness of breath. MD complaint: Cough, congestion Onset (ago): day(s) (1) Related Data Home Medications Medication Instructions Recorded Confirmed metoprolol succinate 25 mg 25 mg PO DAILY 01/22/21 09/27/23 tablet,extended release 24 hr sertraline 100 mg tablet 100 mg PO DAILY 01/22/21 09/27/23 atomoxetine 40 mg capsule 40 mg PO BID 04/19/22 09/27/23 albuterol sulfate 90 mcg/actuation 2 puff inhalation QID PRN sob 09/27/23 09/27/23 aerosol inhaler lisinopril 10 mg tablet 10 mg PO DAILY 09/27/23 09/27/23 Allergies Allergy/AdvReac Type Severity Reaction Status Date / Time codeine Allergy Intermediate hives Verified 09/27/23 14:22 Penicillins Allergy Intermediate hives Verified 09/27/23 14:22 lorazepam Allergy Mild chest Verified 09/27/23 14:22 burning latex AdvReac Mild Rash Verified 09/27/23 14:22 Review of Systems Constitutional: Constitutional: Reports no additional constitutional complaints, Reports body ache(s), Denies chills, Reports fatigue, Denies fever(s) and Denies headache(s) Eyes: Eyes: Reports no additional eye complaints and Denies blurry vision ENT: Reports system reviewed and no additional complaints, except as documented, Denies vertigo, Denies dizziness, Denies ear discharge, Denies otalgia, Denies facial pain, Denies headache(s), Reports nasal congestion, Reports nasal discharge, Denies sinus pain, Denies sinus pressure and Denies sore throat Cardiovascular: Cardiovascular: Reports no additional cardiovascular complaints, Denies chest pain, Denies chest pain at rest, Denies rapid heart rate and Denies dyspnea Respiratory: Respiratory: Reports no additional respiratory complaints, Reports chest congestion, Reports cough, Denies pain on inspiration, Denies pain with cough and Denies dyspnea Gastrointestinal: Gastrointestinal: Denies abdominal pain, Denies diarrhea, Denies nausea and Denies vomiting Integumentary/Breasts: Skin/Breast: Denies rash Neurologic: Reports system reviewed and no additional complaints, except as documented, Denies vertigo, Denies dizziness and Denies headache(s) Endocrine: Endocrine: Denies fatigue PMFSH Past Medical History Medical History ADHD Anxiety Asthma Cone-kylah degeneration Depression Ear infection Hypertension Surgical History Surgical History H/O: hysterectomy History of tonsillectomy and adenoidectomy age 8 Previous section x2 Family History Family History Other No significant family history Social History Social History Smoking status: Never smoker Alcohol intake: never Substance use: never Living arrangements: with family Gender identity (if verbalized by the patient): Female Comments At the time of my signature, I reviewed and agree with the nursing past medical, surgical, social, and family history. There is no relevant family history pertinent to the patient complaint. Exam Const: General: cooperative, healthy appearing, no acute distress and well nourished Nutritional Appearance: well nourished Orientation/consciousness: patient oriented x3 Limitations: no limitations HENMT: Head: normal to inspection and normocephalic Ears: external ears normal, TM's normal bilaterally, mastoids normal
== END 2023-09-27 14:40 | disposition home or self-care (01) ==
PROVIDERS: Emergency Provider Registered Nurse
DX: B34.9 Viral infection, unspecified (principal); Z20.822 Contact with and (suspected) exposure to COVID-19; J45.909 Unspecified asthma, uncomplicated; I10 Essential (primary) hypertension; F41.9 Anxiety disorder, unspecified; F32.A Depression, unspecified; F90.9 Attention-deficit hyperactivity disorder, unspecified type
CPT/HCPCS: 87426; 87804; 99213; C9803; G0463

== ENCOUNTER 2024-01-31 18:45 | Emergency (ER) | payer MEDICARE, OTHER, SELFPAY ==
--- NOTE | ~2024-01-31 | XR_ITS ---
EXAMINATION: XR foot RT min 3V DATE: 01/31/2024 19:26 INDICATION: Blunt trauma to the right foot TECHNIQUE: Dorsoplantar, two oblique and lateral views of the right foot were obtained. COMPARISON: None. FINDINGS: Alignment is normal. No fracture. Mild osteoarthritis at the first metatarsophalangeal joint and a fe w of the interphalangeal joints. Normal variant type II os naviculare. Plantar calcaneal spur. Soft t issues are unremarkable. IMPRESSION: 1. No acute osseous abnormality. Reviewed, dictated and finalized at location A.
[2024-01-31 19:00] VITALS: BP 157/93; PULSE 85; RESP 20; TEMP 36.7; O2SAT 99
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
== END 2024-01-31 20:00 | disposition home or self-care (01) ==
PROVIDERS: Emergency Provider Registered Nurse
DX: S90.31XA Contusion of right foot, initial encounter (principal); W20.8XXA Other cause of strike by thrown, projected or falling object, initial encounter; J45.909 Unspecified asthma, uncomplicated; I10 Essential (primary) hypertension; F41.9 Anxiety disorder, unspecified; F32.A Depression, unspecified; F90.9 Attention-deficit hyperactivity disorder, unspecified type
CPT/HCPCS: 73630; 99213; G0463

== ENCOUNTER 2025-09-08 12:51 | Emergency (ER) | payer MEDICARE, OTHER, SELFPAY ==
[2025-09-08 13:00] VITALS: BP 117/72; PULSE 99; RESP 16; TEMP 36.3; O2SAT 98
--- NOTE | 2025-09-08 13:31 | ED_ITS ---
HPI - Female Genitourinary General Chief complaint: Urogenital-Female Stated complaint: poss uti Time Seen by Provider: 09/08/25 13:15 Source: patient and RN notes reviewed Mode of arrival: ambulatory Limitations: no limitations History of Present Illness HPI Narrative: [age] female presents Express Care complaining of urinary symptoms for 7 days. Patient reports having dysuria, increased frequency, hesitancy, suprapubic pressure. Patient denies any fevers, abdominal pain, body aches, chills, nausea, vomiting, diarrhea flank pain, vaginal bleeding, vaginal discharge any other symptoms. Patient has tried [id number] azos and cranberry juice without relief. Patient is legally blind. Related Data Home Medications ?Medication ?Instructions ?Recorded ?Confirmed ?Last Taken ?Type metoprolol succinate 25 mg 25 mg PO DAILY 01/22/2104/20 Unknown History tablet,extended release 24 hr sertraline 100 mg tablet 100 mg PO DAILY 01/22/2104/20 Unknown History atomoxetine 80 mg capsule 80 mg PO DAILY 08/04/2404/20 Unknown History sertraline 50 mg tablet 50 mg PO DAILY 08/04/2404/20 Unknown History Allergies Allergy/AdvReac Type Severity Reaction Status Date / Time codeine Allergy Intermediate hives Verified 09/08/25 13:08 Penicillins Allergy Intermediate hives Verified 09/08/25 13:08 lorazepam Allergy Mild chest Verified 09/08/25 13:08 burning latex AdvReac Mild Rash Verified 09/08/25 13:08 Review of Systems Review of Systems: CONSTITUTIONAL: Denies fever, chills, body aches, or sweats. EYES: Denies visual changes, redness, or discharge. ENT: Denies rhinorrhea, congestion, sore throat, or otalgia. CARDIOVASCULAR: Denies chest pain, palpitations, or edema. RESPIRATORY: Denies cough or dyspnea. GASTROINTESTINAL: Denies abdominal pain, nausea, vomiting, or diarrhea. GENITOURINARY: Positive for dysuria, increased frequency, hesitancy, suprapubic pressure. Negative for hematuria. SKIN: Denies rash or itching. MUSCULOSKELETAL: Denies back pain, joint pain, or myalgia. NEUROLOGIC: Denies headache, numbness, or weakness. PSYCHIATRIC: Denies anxiety or depression. All other systems reviewed are negative, except as documented in HPI. [facility] Past Medical History Medical History Ear infection Cone-kylah degeneration Depression Anxiety ADHD Hypertension Asthma Surgical History Surgical History History of tonsillectomy and adenoidectomy age 8 Previous section x2 H/O: hysterectomy Family History Family History Other No significant family history Social History Social History Smoking status: Never smoker Alcohol intake: never Substance use: never Living arrangements: with family Gender identity (if verbalized by the patient): Female Comments At the time of my signature, I reviewed and agree with the nursing past medical, surgical, social, and family history. There is no relevant family history pertinent to the patient complaint. Exam Narrative: GENERAL: This is a well-nourished, well-developed adult, in no apparent distress. They are non ill-appearing, nontoxic appearing. HEAD: normocephalic, atraumatic. EYES: Sclera clear/white. Vision is grossly intact. Conjunctiva normal bila terally. Extraocular movements intact. EARS: External ears normal,Hearing grossly intact. NOSE: External nose normal THROAT: Mucous membranes moist NECK: Normal range of motion CARDIOVASCULAR: Regular rate and rhythm. Normal S1-S2. No clicks, gallops, rubs, murmurs. RESPIRATORY: Respiratory rate normal, respiratory effort nonlabored, no respiratory distress. Lung sounds clear to auscultation throughout. Lung sounds equal bilaterally. No adventitious lung sounds. GASTROINTESTINAL: Abdomen soft, flat, non-tender, nondistended. SKIN: warm, Dry, intact with no suspicious lesions or rash, good texture and turgor. NEURO: awake, alert, and oriented to person, place and time. There were no obvious focal neurologic abnormalities. EXTREMITIES: No joint tenderness, effusion, or edema noted. BACK: Nontender without deformity. No CVA tenderness. Course Course Level of Care: Express Care Visit Vital Signs Vital signs: Vital Signs Temperature 97.4 F L 09/08/25 13:00 Pulse Rate 99 09/08/25 13:00 Respiratory Rate 16 09/08/25 13:00 Blood Pressure 117/72 09/08/25 13:00 Pulse Oximetry 98 09/08/25 13:00 Oxygen Delivery Room Air 09/08/25 13:00 Temperature 97.4 F L 09/08/25 13:00 Pulse Rate 99 09/08/25 13:00 Respiratory Rate 16 09/08/25 13:00 Blood Pressure 117/72 09/08/25 13:00 Pulse Oximetry 98 09/08/25 13:00 Oxygen Delivery Room Air 09/08/25 13:00 MDM MDM Narrative Medical decision making narrative: Unable to perform dipstick due to patient taking Azos today, male to result, urine cultures pending. Patient's symptoms clinically consistent with urinary tract infection. Given her leak the symptoms will go ahead and treat her with Macrobid. Discussed physical exam findings. Advised supportive measures and signs/symptoms to go to the ER. Pt is appropriate for outpt treatment and f/u. Differential Diagnosis Differential Diagnosis: Urinary tract infection, cystitis, pyelonephritis Discharge Plan Discharge Clinical Impression: Urinary tract infection Qualifiers: Urinary tract infection type: site unspecified Hematuria presence: without hematuria Qualified Code(s): N39.0 - Urinary tract infection, site not specified Patient Disposition: Home Condition: Stable Instructions: Antibiotic Form, Urinary Tract Infection in Older Adults (ED) Additional Instructions: Take the antibiotic as prescribed The urine will be sent of for a culture to identify what type of bacteria is causing your infection. If the culture shows that the antibiotic will not get rid of your infection, you will be notified and a new antibiotic will be called in for you. Increase water intake you will need to follow up with your PCP 3-5 days. Go to the ER for any worsening symptoms, abdominal pain, flank pain, fevers, nausea, vomiting, or any other concerns Patient Language: Estonian Prescriptions: New nitrofurantoin monohyd/m-cryst [Macrobid] 100 mg capsule 100 mg PO Q12H 5 Days Qty: 10 0RF Rx Instructions: must administer with a meal/food No Action sertraline 50 mg tablet 50 mg PO DAILY atomoxetine 80 mg capsule 80 mg PO DAILY metoprolol succinate 25 mg tablet extended release 24 hr 25 mg PO DAILY sertraline 100 mg tablet 100 mg PO DAILY Follow-up/Referrals: PHYSICIAN NOT ON STAFF,NONSTAFF [Primary Care Provider] Time of Disposition: 13:27
== END 2025-09-08 13:31 | disposition home or self-care (01) ==
DX: N39.0 Urinary tract infection, site not specified (principal); I10 Essential (primary) hypertension; J45.909 Unspecified asthma, uncomplicated; F90.9 Attention-deficit hyperactivity disorder, unspecified type; F41.9 Anxiety disorder, unspecified; F32.A Depression, unspecified
CPT/HCPCS: 87086; 87186; 99213; G0463